=== PATIENT | male | born 1955 | race Caucasian/White ===

== ENCOUNTER 2016-08-11 09:53 | Day surgery (SDC) | payer MEDICARE, OTHER ==
[~2016-08-11 09:53] MED LIST: LACTATED RINGERS 1,000 ML IV SCH
[2016-08-11] MEDS ORDERED: LACTATED RINGERS 1,000 ML ONE (10:40)
[2016-08-11] MEDS ORDERED: IV START KIT ONE (10:40)
[2016-08-11] MEDS ORDERED: PROPOFOL 60 ML IV ONE (12:35)
[2016-08-11 15:26] LABS: HELICOBACTER PYLORII DETECTION POSITIVE (NEGATIVE)
--- NOTE | 2016-08-17 13:48 | SURGPATH ---
[facility] [address] [place] [id number] Patient Name: GAVIN CHAO MR#: [id number] : 1955 Gender: M Specimen #: [id number] Collected: 08/11/2016 Received: 08/16/2016 Reported: 08/17/2016 Submitting Phys: KELTON SOW Copy To Phys: KEVIN FRANCIS [facility] Clinical History / Pre-Operative Diagnosis: History of colon polyps; preparation for bariatric surgery; rule out giardia, celiac sprue and gastritis Specimen Source / Surgical Procedure Performed: #1-duodenal biopsy; #2-antral biopsy Interpretation: 1. DUODENUM, BIOPSY: - SMALL BOWEL MUCOSA SHOWING NO DIAGNOSTIC ABNORMALITIES. - NO EVIDENCE OF CELIAC DISEASE. - NO EVIDENCE OF SIGNIFICANT INFLAMMATION, VILLOUS BLUNTING, OR MALIGNANCY. 2. GASTRIC ANTRUM, BIOPSY: - MILD CHRONIC GASTRITIS. - NO MICROORGANISMS IDENTIFIED WITH ROUTINE STAINING. - NO EVIDENCE OF ACUTE INFLAMMATION, INTESTINAL METAPLASIA, OR MALIGNANCY. Electronically Signed Out Jaime Velasquez M.D., Ph.D. Gross Description: #1 The specimen is received in a formalin filled container labeled with the patient's name and "duodenal biopsy". Two contreras-owens biopsies are 0.3 and 0.5 cm. Totally embedded in cassette #1. #2 The specimen is received in a formalin filled container labeled with the patient's name and "antral biopsy". Two owens biopsies are 0.4 and 0.5 cm. Totally embedded in cassette #2. Tomy Gonzalez Microscopic Description: 1. Examination of multiple levels from the duodenum biopsy shows two fragments of histologically unremarkable small bowel mucosa. The villous architecture is intact without evidence of blunting. There is no evidence of increased intraepithelial lymphocytes. There is no evidence of significant inflammation or malignancy. 2. Examination of multiple levels from gastric antrum biopsy shows two fragments of gastric mucosa with expansion of the lamina propria by a mixed inflammatory cell infiltrate consisting of lymphocytes, plasma cells, and occasional eosinophils. No neutrophils are seen. No microorganisms identified with routine staining. There is no evidence of intestinal metaplasia or malignancy. 1: 53346 2: 07147 K29.50
--- NOTE | 2016-08-18 06:21 | PROCNOTE ---
Alexi Hoover [id number] DATE: 08/17/2016 This 61-year-old patient with the practice of Dr. Tyler Lao underwent upper endoscopy and colonoscopy in preparation for consideration bariatric surgery on August 11. The upper endoscopy demonstrated a H-pylori negative gastritis and famotidine was prescribed. Rapid urease testing for H-pylori has returned positive. Biaxin and metronidazole both 500 mg twice daily for 10 days have been prescribed. Medical follow up will be by Dr. Tyler Lao. JOB: [id number] CC: Dr. Tyler Lao
== END 2016-08-11 12:30 | disposition home or self-care (01) ==
LOC: SDC 09:53
PROVIDERS: ATTEND Internal Medicine Gastroenterology
PROC: 0DB98ZX Excision of Duodenum, Via Natural or Artificial Opening Endoscopic, Diagnostic (ICD-10-PCS; principal; 2016-08-11)
PROC: 0DB68ZX Excision of Stomach, Via Natural or Artificial Opening Endoscopic, Diagnostic (ICD-10-PCS; 2016-08-11)
PROC: 0DJD8ZZ Inspection of Lower Intestinal Tract, Via Natural or Artificial Opening Endoscopic (ICD-10-PCS; 2016-08-11)
DX: Z01.818 Encounter for other preprocedural examination (principal); K29.50 Unspecified chronic gastritis without bleeding; K29.80 Duodenitis without bleeding; Z12.11 Encounter for screening for malignant neoplasm of colon; K57.30 Diverticulosis of large intestine without perforation or abscess without bleeding; Z86.010 Personal history of colon polyps; Z87.891 Personal history of nicotine dependence; I10 Essential (primary) hypertension; F32.9 Major depressive disorder, single episode, unspecified; M79.1 Myalgia; G89.29 Other chronic pain; Z79.891 Long term (current) use of opiate analgesic; E03.9 Hypothyroidism, unspecified; G47.39 Other sleep apnea; E66.9 Obesity, unspecified; Z68.43 Body mass index [BMI] 50.0-59.9, adult; I73.9 Peripheral vascular disease, unspecified; E55.9 Vitamin D deficiency, unspecified; Z88.5 Allergy status to narcotic agent; Z88.8 Allergy status to other drugs, medicaments and biological substances; Z88.0 Allergy status to penicillin; Z79.82 Long term (current) use of aspirin
CPT/HCPCS: 43239; 45378; 87081; J7120